=== PATIENT | female | born 1990 | race Caucasian/White ===

== ENCOUNTER 2023-10-19 06:33 | Inpatient (IN) | payer OTHER ==
[~2023-10-19] VITALS: Ht 175.3 cm; Wt 107.0 kg
[~2023-10-19 06:33] MED LIST: CYCLOBENZAPRINE10 MG PO; HYDROCODON-ACE1 EA10 PO
[2023-10-25 05:22] VITALS: BP 136/64
[2023-10-25 05:38] LABS: AMPHETAMINES, URINE NEGATIVE (NEGATIVE); BARBITURATES, URINE NEGATIVE (NEGATIVE); BENZODIAZEPINE, URINE NEGATIVE (NEGATIVE); BUPRENORPHINE, URINE NEGATIVE (NEGATIVE); CANNABINOID, URINE POSITIVE (NEGATIVE); COCAINE, URINE NEGATIVE (NEGATIVE); ECSTASY, URINE NEGATIVE (NEGATIVE); FENTANYL, URINE NEGATIVE (NEGATIVE); METHADONE, URINE POSITIVE (NEGATIVE); OPIATES, URINE NEGATIVE (NEGATIVE); OXYCODONE, URINE NEGATIVE (NEGATIVE); PHENCYCLIDINE, URINE NEGATIVE (NEGATIVE)
[2023-10-25 05:47] LABS: HEMOGLOBIN 11.1 g/dL (12.0-18.0); MCH 29.4 (27-36); MCHC 32.7 g/dl (30-36); MCV 89.7 fl (81-99); RBC 3.79 M/ul (4.3-5.7); RDW 13.1 (10.5-15.0)
[2023-10-25] MEDS ORDERED: LACTATED RINGER'S 2,000 ML IV PRN (06:00)
[2023-10-25] MEDS ORDERED: LACTATED RINGER'S 1,000 ML IV SCH ×2 (06:00→09:08)
[2023-10-25 06:22] LABS: ABO A; ANTIBODY SCREEN NEGATIVE; RH POSITIVE
[2023-10-25] MEDS ORDERED: LIDOCAINE HCL 2% 5 ML SDV ONE (06:53)
[2023-10-25] MEDS ORDERED: MORPHINE SULFATE 1 MG/ML VIAL ONE (06:53)
[2023-10-25] MEDS ORDERED: SODIUM CHLORIDE 0.9% 60 ML IV ONE (06:53)
[2023-10-25] MEDS ORDERED: BUPIVACAINE 0.75% IN DEXTROSE 2 ML AMP ONE (06:53)
[2023-10-25] MEDS ORDERED: ondansetron HCL 4 MG/2 ML VIAL ONE (06:53)
[2023-10-25] MEDS ORDERED: DEXAMETHASONE SOD PHOS 4 MG/ML VIAL ONE ×2 (06:53)
[2023-10-25] MEDS ORDERED: fentaNYL citrate 100 MCG/2 ML VIAL ONE (06:53)
[2023-10-25] MEDS ORDERED: Ropivacaine HCl 0.5% 30 ML VIAL ONE (06:53)
[2023-10-25] MEDS ORDERED: OXYTOCIN 10 UNITS/ML VIAL ONE (06:53)
[2023-10-25] MEDS ORDERED: dexmedeTOMIDine HCl 200 MCG/2 ML VIAL ONE ×2 (06:53→08:17)
[2023-10-25] MEDS ORDERED: ACETAMINOPHEN 1,000 MG/100 ML VIAL ONE (06:53)
[2023-10-25] MEDS ORDERED: ePHEDrine sulfate 50 MG/ML AMP ONE (06:54)
[2023-10-25] MEDS ORDERED: PHENYLEPHRINE HCL 10 MG/ML VIAL ONE (06:54)
[2023-10-25] MEDS ORDERED: GENTAMICIN SULFATE IV SCH (07:00)
[2023-10-25] MEDS ORDERED: DEXTROSE 5% IV SCH (07:00)
[2023-10-25] MEDS ORDERED: SOD+POT BICARB/CITRIC ACID 2 EA TABLET.EFF PO SCH (07:00)
[2023-10-25] MEDS ORDERED: CLINDAMYCIN PHOSPHATE/D5W 900 MG/50 ML BAG IV SCH (07:00)
[2023-10-25] MEDS ORDERED: METHADONE HCL 10 MG TAB PO ONE (07:15)
[2023-10-25] MEDS ORDERED: SODIUM CHLORIDE 0.9% 20 ML IV ONE (08:31)
[2023-10-25] MEDS ORDERED: LACTATED RINGER'S 1,000 ML IV ONE (08:37)
[2023-10-25] MEDS ORDERED: MORPHINE SULFATE 15 MG TABCR PO SCH (09:06)
[2023-10-25] MEDS ORDERED: KETOROLAC TROMETHAMINE 30 MG/ML VIAL ONE (09:09)
[2023-10-25] MEDS ORDERED: OXYCODONE HCL 5 MG TAB PO PRN (09:15)
[2023-10-25] MEDS ORDERED: PROCHLORPERAZINE EDISYLATE 10 MG/2 ML VIAL IV PRN (09:15)
[2023-10-25] MEDS ORDERED: ondansetron HCL 4 MG/2 ML VIAL IV PRN ×2 (09:15→09:30)
[2023-10-25] MEDS ORDERED: bisacodyL 10 MG SUPP PR PRN (09:15)
[2023-10-25] MEDS ORDERED: PROMETHAZINE HCL 25 MG TAB PO PRN (09:15)
[2023-10-25] MEDS ORDERED: OXYTOCIN/0.9 % SODIUM CHLORIDE 500 ML IV SCH (09:15)
[2023-10-25] MEDS ORDERED: METOCLOPRAMIDE HCL 10 MG/2 ML SDV IV PRN (09:15)
[2023-10-25] MEDS ORDERED: PROMETHAZINE HCL 25 MG SUPP PR PRN (09:15)
[2023-10-25] MEDS ORDERED: MORPHINE SULFATE 4 MG/ML VIAL IV PRN (09:30)
[2023-10-25] MEDS ORDERED: NALOXONE HCL 0.4 MG SYR IV PRN ×2 (09:30)
[2023-10-25] MEDS ORDERED: KETOROLAC TROMETHAMINE 30 MG/ML VIAL IV PRN (09:30)
[2023-10-25] MEDS ORDERED: IBLOOD GLUCOSE TEST STRIP 1 EA TEST VI PRN (09:30)
[2023-10-25] MEDS ORDERED: fentaNYL citrate 50 MCG/ML SDV IV PRN (09:30)
[2023-10-25] MEDS ORDERED: SIMETHICONE 125 MG TABLET CHEWABLE PO SCH (11:00)
[2023-10-25] MEDS ORDERED: KETOROLAC TROMETHAMINE 30 MG/ML VIAL IV SCH (14:00)
--- NOTE | 2023-10-25 15:50 | NUR ---
10/25/23 1550 Marilynn Vogt 0912-PT ARRIVED BACK TO [facility] ROOM 104 ON RA, AAOX3, AND ABLE TO MAKE HER NEEDS KNOWN. VSS. RR EVEN AND UNLABORED. FUNDAL CHECK COMPLETED. PT WITH PERFORMANCE IMPROVEMENT COORDINATOR AND SIG OTHER IN ROOM. BABY TO BREAST WITH [facility] RN ASSISTANCE. IV ASSESSED IN L WRIST, 20 G, DRESSING INTACT. LR WITH PIT INFUSING W/O ISSUES. NO S/SX INFILTRATION. 0920-PT INQUIRING TO HAVE HOB ELEVATED. ELEVATED TO APPROX 30 DEGREES TO AID IN COMFORT AND ABILITY TO BREAST FEED BABY. SPINAL LEVEL AT T7 PT UNABLE TO MOVE FEET OR WIGGLE TOES YET. SATS REMAIN STABLE ON RA AT 92% OR GREATER. 0930-PT REPORTS PAIN IMPROVED SOME WITH REST AND NOW RATES PAIN 7/10. PT ASKING TO HAVE HOB ELEVATED MORE. BP STABLE. HOB ELEVATED TO APPROX 45 DEGREES TO AID IN . RR EVEN AND UNLABORED. SATS REMAIN STABLE ON RA. 0940-PT NOTED TO GRIMACE AND MOAN WITH FUNDAL CHECKS. PT REPORTS PAIN AT 7/10 AT REST AND REPORTS THIS TO BE A TOLERABLE LEVEL. PT REPORTS PAIN TO BE A CRAMPING FEELING. EXPLAINED TO PT CRAMPING IS EXPECTED AND NEEDED TO HELP THE UTERUS SHRINK BACK TO NORMAL SIZE AND EXSPELL DRAINAGE TO PREVENT POST COMPLICATIONS WITH THE FUNDAL CHECKS WELL. 0945-PTS SIG OTHER HOLDING BABY IN ROOM. PT NOTED TO BE DOZING ON AND OFF IN BED. PT IS EASILY AROUSABLE TO VERBAL STIMULI. PT CONT TO RATE PAIN AT 7/10 WHILE RESTING IN BED. PT REPORTS THIS PAIN TO BE TOLERABLE FOR HER. PT ABLE TO MOVE LEGS ABOUT IN BED BUT IS UNABLE TO WIGGLE TOES. 0950-TUCKER EMPTIED OF 50 ML OF CLR YELLOW URINE. SPINAL LEVEL RECHECKED AND NOTED TO BE AT T8. FUNDAL CHECKS REMAIN UNREMARKABLE. SATS STABLE ON RA AT 92% OR GREATER, PTS SIG OTHER AND PERFORMANCE IMPROVEMENT COORDINATOR REMAIN IN ROOM WITH PT. 1000-REPORT GIVEN TO [facility] RN. BED IN LOW POSITION WITH WHEELS LOCKED. CALL LIGHT WITHIN REACH.
[2023-10-25] MEDS ORDERED: ENOXAPARIN SODIUM 40 MG/0.4 ML SYR SUB-Q SCH (16:00)
[2023-10-25] MEDS ORDERED: METHADONE HCL 10 MG TAB PO SCH (21:00)
[2023-10-25] MEDS ORDERED: SENNOSIDES/DOCUSATE 1 EA TAB PO SCH (21:00)
[2023-10-26 06:06] LABS: HEMATOCRIT 32.1 % (35.0-50.0); HEMOGLOBIN 10.6 g/dL (12.0-18.0); MCH 29.9 (27-36); MCHC 32.9 g/dl (30-36); MCV 90.8 fl (81-99); RBC 3.54 M/ul (4.3-5.7); RDW 13.3 (10.5-15.0)
--- NOTE | 2023-10-26 07:32 | PR ---
[facility] [address] [place], [place] [address] Signed PP Progress Notes Datetime Report Generated by CPN: 10/26/2023 07:32 SUBJECTIVE: [id number] Pain: Within Normal Limits Nausea/Vomiting: Denies Flatus: Yes Bowel Movement: No Vital Signs: [id number] Vital Signs: Reviewed Notable Details: somewhat labile BPs; seem to be related to pain; will monitor Cardiovascular: Normal Respiratory: Normal Abdomen/Uterus: Normal Lochia: Normal Vulva/Perineum: Not Done Breasts: Not Done CVA Tenderness: Normal Extremities: Normal Incision: Normal Progress: Normal Exam Comments: Fundus firm U-2 expected postoperative discomfort. and incision not examined at this time IMPRESSION/PLAN/PROCEDURES: [id number] Impression: Normal Progression; Pain Plan: Continue Present Management Progress Notes: Pt seen and examined. Doing well. Ambulating and tolerating full diet. Lechuga cath in place. Pain acceptably well controlled last night on current regimen on Methadone 70mg PO BID, MS Contin 15mg PO (will increase to TID today), oxycodone 5mg TID prn, toradol, ice, binder, and postoperative TAP blocks. Lochia minimal. Working on with RN. No concerns at this time. All questions answered. Signing Physician: Asad Arvizu DO Copies: ~ *Electronically Signed* 10/26/23 0732 ASAD ARVIZU (LAUREN) DO PATIENT NAME: GABRIEL ROSENBERG PROGRESS NOTE DATE OF : 89 PHYSICIAN: ASAD ARVIZU) DO RPT #: [id number] REPORT IS CONFIDENTIAL AND NOT TO BE RELEASED WITHOUT AUTHORIZATION
[2023-10-26] MEDS ORDERED: MORPHINE SULFATE 15 MG TABCR PO SCH (09:00)
--- NOTE | 2023-10-26 11:05 | OR ---
[address] [address] Signed DATE OF OPERATION: 10/25/2023 SURGEON: Asad Arvizu DO PREOPERATIVE DIAGNOSES: 1. Intrauterine at 37 weeks. 2. Suspected uterine window. 3. Opioid maintenance. 4. Cervical insufficiency status post cerclage. 5. Desires salpingectomy. POSTOPERATIVE DIAGNOSES: 1. Intrauterine at 37 weeks. 2. Suspected uterine window. 3. Opioid maintenance. 4. Cervical insufficiency status post cerclage. 5. Desires salpingectomy. PROCEDURES PERFORMED: 1. Repeat low transverse section. 2. Bilateral salpingectomy. 3. Cerclage removal. ADMINISTRATIVE SUPPORT ASSISTANT: Yesenia Dumont MD ANESTHESIA: Spinal with postoperative TAP blocks. ESTIMATED BLOOD LOSS: 600 mL. DRAINS: Lechuga to gravity. COMPLICATIONS: None. FINDINGS: Delivery of viable female 4 pounds 15 ounces in the double footling breech Electronically Signed By: ASAD ARVIZU DO (JD) 10/26/23 1105 PATIENT NAME: GABRIEL ROSENBERG OPERATIVE REPORT DATE OF : [birth year] REPORT #: [id number] PHYSICIAN: ASAD ARVIZU DO (JD) PCP: GAB PADILLA REPORT IS CONFIDENTIAL AND NOT TO BE RELEASED WITHOUT AUTHORIZATION [address] [address] Signed position with nuchal x1. Apgars 9 and 9. Clear amniotic fluid. Thin lower uterine segment, but no uterine window appreciated. Otherwise normal fallopian tubes and ovaries. Hemostasis at the end of procedure with removal of fallopian tubes bilaterally. Cerclage removed at the end of the procedure. INDICATIONS: Ms. Rosenberg is a very pleasant 33-year-old G5, P1-1-2-2 with intrauterine at 37 weeks 1 day gestation, presented for a scheduled and cerclage removal. Risks, benefits, and alternatives were discussed in detail with the patient. The patient understands and wished to proceed with the procedure. DESCRIPTION OF PROCEDURE: The patient was taken to the OR where a time-out was performed to confirm correct patient and correct procedure. Spinal anesthesia was adequately established. The patient was prepped and draped in the supine position with bump on the right hip. Lechuga catheter was inserted. ICPs were on and running and the patient received clindamycin and gentamicin per SCIP protocol due to multiple antibiotic allergies. Once spinal was noted to be adequate, a Pfannenstiel skin incision was made through the prior scar and carried down to the fascia. Fascia was nicked in the midline. The fascial incision was extended bilaterally using curved Dejesus scissors. Fairly dense adhesions of the fascia of the rectus were appreciated but these were brought down without difficulty with blunt and sharp dissection. The peritoneum was entered sharply and peritoneal incision was extended with blunt and sharp dissection in cephalad caudad manner. The lower uterine segment was identified and no uterine window was appreciated, although the lower uterine segment was quite thin. Hysterotomy was performed using a surgical scalpel and clear amniotic fluid was returned. Hysterotomy was extended bilaterally using blunt dissection. Double footling breech was encountered and this was delivered easily by grasping the feet and delivering to the axilla. Anterior arm was swept medially and delivered. The baby was then rotated 180 degrees and now anterior arm was swept medially and delivered. Nuchal cord x1 was appreciated. Head was gently flexed and delivered with the assistance of fundal pressure. was vigorous and cried upon delivery. Cord was doubly clamped and cut. The handed to the waiting pediatric team for further care. The placenta was expressed, intact with a centrally inserted three-vessel cord. The uterine cavity was cleared of any remaining products of conception or clot and the uterus was quite firm with the administration of Pitocin per protocol. Hysterotomy was repaired in two layers of 0 Monocryl, the 1st being a running locked layer and the 2nd being an imbricating layer in the vertical manner. Hemostasis of the hysterotomy was appreciated and attention was turned to the tubal. The right fallopian tube was grasped at the fimbriated end near the cornu with Tammie clamps. The mesosalpinx was examined and was fulgurated and divided using LigaSure device with excellent hemostasis. The tube was amputated and flushed at the cornu. The process was repeated on the left side without difficulty with excellent Electronically Signed By: ASAD WHIPPLE) DO REBA 10/26/23 1105 PATIENT NAME: GABRIEL ROSENBERG OPERATIVE REPORT DATE OF : [birth year] REPORT #: [id number] PHYSICIAN: ASAD ARVIZU) PCP: GAB PADILLA REPORT IS CONFIDENTIAL AND NOT TO BE RELEASED WITHOUT AUTHORIZATION [facility] [address] [place] [address] Signed hemostasis bilaterally. The uterus was turned to the abdomen. The lower uterine segment again examined and found to be hemostatic and Elmira was applied. Peritoneum was reapproximated using 3-0 Vicryl in a running nonlocked manner. Rectus was made hemostatic with judicious use of Bovie electrocautery and the rectus was then plicated in the midline and Elmira powder was applied to this layer. The fascia was reapproximated using 0 Vicryl in a running nonlocked manner. Subcu is irrigated, examined and made hemostatic with judicious use of Bovie electrocautery. It was then closed with 3-0 Vicryl in a running manner. Skin was reapproximated using surgical chinedu. The uterus was Crede'd for a scant amount of blood. Attention was then turned to the cerclage. The patient was then prepped and draped in the dorsal lithotomy position with her feet in Yellofin stirrups. A speculum was inserted and Mersilene tape cerclage was noted. This was grasped with Xenia uterine packing forceps, elevated and one side of the stitch was cut. The tape was then pulled free of the cervix without difficulty and bleeding was noted to be minimal. The patient remained in the OR for postoperative TAP block per Anesthesia. Sponge, needle, and instrument count was correct x2 at the end of the procedure. Dr. Dumont was present and participated in all portions of the . DO BRENT Flaherty/MODL /[id number] Copies: ~ Electronically Signed By: ASAD ARVIZU DO (JD) 10/26/23 1105 PATIENT NAME: GABRIEL ROSENBERG OPERATIVE REPORT DATE OF : 89 REPORT #: [id number] PHYSICIAN: ASAD ARVIZU) PCP: GAB PADILLA REPORT IS CONFIDENTIAL AND NOT TO BE RELEASED WITHOUT AUTHORIZATION
[2023-10-26] MEDS ORDERED: ACETAMINOPHEN 500 MG TAB PO PRN (11:30)
[2023-10-26] MEDS ORDERED: IBUPROFEN 800 MG TAB PO SCH (14:00)
[2023-10-26] MEDS ORDERED: METHADONE HCL 10 MG TAB PO SCH (19:00)
[2023-10-27] MEDS ORDERED: OXYCODONE HCL 5 MG TAB PO PRN (07:30)
--- NOTE | 2023-10-27 07:31 | PR ---
[facility] [address] [place], [place] [address] Signed PP Progress Notes Datetime Report Generated by CPN: 10/27/2023 07:31 SUBJECTIVE: [id number] Pain: Within Normal Limits Nausea/Vomiting: Denies Flatus: Yes Bowel Movement: No Vital Signs: [id number] Vital Signs: Reviewed Notable Details: Monitoring BPs Cardiovascular: Normal Respiratory: Normal Abdomen/Uterus: Normal Lochia: Normal Vulva/Perineum: Not Done Breasts: Normal CVA Tenderness: Normal Extremities: Normal Incision: Normal Progress: Normal Exam Comments: Fundus firm U-2 nontender. and incision not examined at this time IMPRESSION/PLAN/PROCEDURES: [id number] Impression: Normal Progression; Pain Plan: Continue Present Management Progress Notes: Pt seen and examined. Doing well. Pain somewhat increased but tolerable. Will increase oxycodone from 5mg po TID to 10mg TID. Continue methadone 70mg PO BID and MS Contin 15mg TID. Scheduled ibuprofen, tyelonol, ice and binder also helping. No s/sx of withdrawl per RN. Ambulating, voiding, and tolerating full diet. Lochia minimal. well. No other questions or concerns. Anticipate d/c to border status tomorrow. Will consult patient's pain specialist prior to discharge to coordinate discharge med management. Signing Physician: Asad Arvizu DO Copies: ~ *Electronically Signed* 10/27/23 0735 ASAD ARVIZU (LAUREN) DO PATIENT NAME: GABRIEL ROSENBERG PROGRESS NOTE DATE OF : [birth year] PHYSICIAN: ASAD ARVIZU (JD) DO RPT #: [id number] REPORT IS CONFIDENTIAL AND NOT TO BE RELEASED WITHOUT AUTHORIZATION
[2023-10-27 09:08] LABS: HEMATOCRIT 32.9 % (35.0-50.0); HEMOGLOBIN 10.9 g/dL (12.0-18.0); MCH 30.3 (27-36); MCHC 33.3 g/dl (30-36); RBC 3.61 M/ul (4.3-5.7); RDW 13.4 (10.5-15.0)
[2023-10-27 09:26] LABS: ALBUMIN 2.4 g/dL (3.4-5.0); ALBUMIN/GLOBULIN RATIO 0.55 (1.1-2.4); BILIRUBIN, TOTAL 0.1 ng/dL (0.2-1.0); BUN/CREATININE RATIO 17.47 (6.0-28.6); CREATININE, SERUM 1.03 mg/dL (0.55-1.02); PROTEIN, TOTAL 6.8 g/dL (6.4-8.2)
[2023-10-27 11:13] LABS: CREATININE, RANDOM URINE 169.1 mg/dL (NOT ESTABLISHED); PROTEIN/CREATININE RATIO 0.16 mg/mg (0.010-0.107)
[2023-10-28 10:40] VITALS: BP 128/63
--- NOTE | 2023-10-28 11:13 | PR ---
[facility] [address] [place], [place] [address] Signed PP Progress Notes Datetime Report Generated by DARVIN: 10/28/2023 11:13 SUBJECTIVE: [id number] Pain: Within Normal Limits Nausea/Vomiting: Denies Flatus: Yes Bowel Movement: Yes Vital Signs: [id number] Vital Signs: Reviewed; Within Normal Limits Notable Details: Monitoring BPs EXAM: Ongoing Cardiovascular: Not Done Respiratory: Not Done Abdomen/Uterus: Normal Lochia: Normal Vulva/Perineum: Not Done Breasts: Not Done CVA Tenderness: Not Done Extremities: Normal Incision: Abnormal Progress: Normal Exam Comments: Fundus firm U-2 nontender. and incision not examined at this time IMPRESSION/PLAN/PROCEDURES: [id number] Impression: Normal Progression Plan: Continue Present Management Procedures: None Progress Notes: 33 yo s/p RLTCS with bilateral tubal ligation. POD#3. Doing well. Denies SOLIS, CP, SOB, F/C, N/V, RUQ pain, changes in vision, vaginal discharge. Tolerating regular diet, ambulating, voiding on own, pain controlled. O: AFVSS Abd: Soft. Appropriately tender. Antonio in place. Incision clean and dry. Slight separation of incision at the right and left poles. Musc: COLON. A/P: 33 yo s/p RLTCS, POD#3. Doing well. Meeting all hospital milestones. Will leave antonio in place. Patient to be seen on Tuesday for evaluation for removal at that time. She understands she will be given enough pain meds for one week. Spoke with Dr. Kwadwo Dao regarding discharge regimen. He recommends keeping patient on *Electronically Signed* 10/28/231112 SELWYN ARMSTRONG MD PATIENT NAME: XAVI ROSENBERGALEX NG PROGRESS NOTE DATE OF : [birth year] PHYSICIAN: SELWYN ARMSTRONG MD RPT #: [id number] REPORT IS CONFIDENTIAL AND NOT TO BE RELEASED WITHOUT AUTHORIZATION [address] [address] Signed current regimen as she is tolerating, and tapering requirements over the next 8 weeks until she is completely off of the pain meds. Will relay this information to Dr. Arvizu. Will discharge home today. Signing Physician: Selwyn Armstrong MD Copies: ~ *Electronically Signed* 10/28/231112 SELWYN ARMSTRONG MD PATIENT NAME: CHETGABRIEL PROGRESS NOTE DATE OF : [birth year] PHYSICIAN: SELWYN ARMSTRONG MD RPT #: [id number] REPORT IS CONFIDENTIAL AND NOT TO BE RELEASED WITHOUT AUTHORIZATION
--- NOTE | 2023-10-28 18:02 | PATH ---
[facility] [address] [place], [place] [address] Signed SPECIMEN(S): A FALLOPIAN TUBES, BILATERAL SPECIMEN SOURCE: A. FALLOPIAN TUBES, BILATERAL CLINICAL HISTORY: Repeat . History of uterine window. FINAL PATHOLOGIC DIAGNOSIS: Bilateral fallopian tubes: - Two segments of benign fimbriated oviduct. JVR:dannielle MICROSCOPIC EXAMINATION: Histologic sections of all submitted blocks are examined by light microscopy. These findings, together with the gross examination, support the pathologic diagnosis. GROSS DESCRIPTION: The specimen, labeled and designated "[place], bilateral fallopian tubes," is received in formalin and consists of two red-brown edematous fimbriated fallopian tube segments (7.5 cm in length and ranging in diameter from 0.5 to 1.2 cm, and 8.0 cm in length and ranging in diameter from 0.4 to 1.0 cm). One of the segments is arbitrarily inked blue. Both segments are serially sectioned to reveal red-brown soft cut surfaces. [employer] sections including the fimbriae entirely are submitted in cassette (A1-A2). VB (under the direct supervision of a pathologist) The Gross Description was prepared using a voice recognition system. The report was reviewed for accuracy; however, sound-alike word errors, addition and/or deletions may occur. If there is any question about this report, please contact Client Services. PERFORMING LABORATORY: Technical component was performed by [facility], [address] [place] [id number] (CLIA# [id number]). Professional interpretation was performed by [facility], [address] [place] [phone] (CLIA#: [id number]). Diagnostician: Eduardo Sherwood MD Pathologist PATIENT NAME: GABRIEL ROSENBERG PATHOLOGY DATE OF : [birth year] REPORT #: [id number] PHYSICIAN: [facility] PCP: GAB PADILLA REPORT IS CONFIDENTIAL AND NOT TO BE RELEASED WITHOUT AUTHORIZATION [address] [address] Signed Electronically Signed 10/28/2023 Copies: ~ PATIENT NAME: GABRIEL ROSENBERG PATHOLOGY DATE OF : [birth year] REPORT #: [id number] PHYSICIAN: [facility] PCP: GAB PADILLA REPORT IS CONFIDENTIAL AND NOT TO BE RELEASED WITHOUT AUTHORIZATION
== END 2023-10-28 11:00 | disposition home or self-care (01) | DRG 785 ==
LOC: FBC 10-25 04:54
PROVIDERS: ADMIT Obstetrics & Gynecology; ATTEND Obstetrics & Gynecology
PROC: 10D00Z1 Extraction of Products of Conception, Low, Open Approach (ICD-10-PCS; principal; 2023-10-25 07:30)
PROC: 0U570ZZ Destruction of Bilateral Fallopian Tubes, Open Approach (ICD-10-PCS; 2023-10-25 07:30)
PROC: 0UCC7ZZ Extirpation of Matter from Cervix, Via Natural or Artificial Opening (ICD-10-PCS; 2023-10-25 07:30)
DX: O34.211 Maternal care for low transverse scar from previous cesarean delivery (principal); Z3A.37 37 weeks gestation of pregnancy; Z37.0 Single live birth; Z30.2 Encounter for sterilization; O32.8XX0 Maternal care for other malpresentation of fetus, not applicable or unspecified; O69.81X0 Labor and delivery complicated by cord around neck, without compression, not applicable or unspecified
CPT/HCPCS: 01961; 36415; 76942; 80053; 80307; 82565; 82570; 83615; 84156; 84550; 85027; 86850; 86900; 86901; 88302; A9270; J0131; J1100; J1580; J1650; J1885; J2001; J2270; J2274; J2371; J2405; J2590; J2795; J3010; J3490; J7060; J7121